=== PATIENT | female | born 1950 | race African-American/Black ===

== ENCOUNTER 2019-06-17 22:34 | Emergency (ER) | payer MEDICARE ==
[~2019-06-17] VITALS: Ht 167.6 cm; Wt 68.0 kg
[2019-06-17 22:38] VITALS: BP 181/99
[2019-06-17] MEDS ORDERED: FAMOTIDINE (20 MG) 20 MG TABLET ONE (22:49)
[2019-06-17] MEDS ORDERED: methylPREDNISolone SOD SUCC 125 MG/2ML VIAL ONE (22:49)
[2019-06-17] MEDS ORDERED: diphenhydrAMINE HCL 50 MG/ML VIAL ONE (22:49)
[2019-06-17] MEDS ORDERED: diphenhydrAMINE HCL 50 MG/ML VIAL IM ONE (23:00)
[2019-06-17] MEDS ORDERED: FAMOTIDINE (20 MG) 20 MG TABLET PO ONE (23:00)
[2019-06-17] MEDS ORDERED: methylPREDNISolone SOD SUCC 125 MG/2ML VIAL IM ONE (23:00)
== END 2019-06-17 23:59 | disposition home or self-care (01) ==
LOC: ER 22:38
DX: T78.40XA Allergy, unspecified, initial encounter (principal); I10 Essential (primary) hypertension; J45.909 Unspecified asthma, uncomplicated; M06.9 Rheumatoid arthritis, unspecified; Z88.1 Allergy status to other antibiotic agents; X58.XXXA Exposure to other specified factors, initial encounter
CPT/HCPCS: 96372 ×2; 99283; J1200; J2930